=== PATIENT | male | born 1965 | race Two or more races ===

== ENCOUNTER 2021-09-28 15:19 | Emergency (ER) | payer BC ==
[~2021-09-28] VITALS: Ht 177.8 cm; Wt 169.0 kg
--- NOTE | 2021-09-28 15:57 | PHYS DOC ---
Past History Past Surgical History: No Surgical History Alcohol Use: None General Adult EDM: Chief Complaint: CHEST PAIN HPI: HPI: 55-year-old male presents with dizziness, near syncope, chest discomfort. Patient was standing next to a cubicle in a meeting when he felt a sensation of vibration all over his body. He also became dizzy and had double vision. The patient thought he was going to pass out. He was cleaning to the cubicle wall and that is why he did not fall over. This lasted for about 20 seconds. After that, the patient had a central chest discomfort which he describes as a mild pressure. He went back to his desk he continued to feel "like I was vibrating". He decided to go home. He called his PCP from his vehicle and they recommended he come to the emergency room. The patient's vision is normal at this time. He states still feeling a mild vibratory sensation in his body. His chest discomfort is very mild at this time. He denies shortness of breath or diaphoresis. He has a history of elevated blood pressure and diabetes. No changes to his medications recently. He has been taking everything as prescribe d. He was feeling well up until this event. Review of Systems: Review of Systems: Constitutional: Denies fever or chills Eyes: Denies change in visual acuity HENT: Denies nasal congestion or sore throat Respiratory: Denies cough or shortness of breath Cardiovascular: Chest pain GI: Denies abdominal pain, nausea, vomiting, bloody stools or diarrhea : Denies dysuria Musculoskeletal: Denies back pain or joint pain Integument: Denies rash Neurologic: Dizzy, near syncope. Denies headache, focal weakness or sensory changes Endocrine: Denies polyuria or polydipsia Lymphatic: Denies swollen glands Psychiatric: Denies depression or anxiety Current Medications: Current Meds: Current Medications Medications (Trade) Dose Ordered Sig/Jasmin Start Time Stop Time Status Last Admin Dose Admin Sodium Chloride 1,000 ml @ 1,000 mls/hr 1X ONCE 09/28/21 16:00 09/28/21 16:59 UNV Allergies: Allergies: Allergies Coded Allergies Type Severity Reaction Last Updated Verified No Known Drug Allergies 09/28/21 No Physical Exam: PE: Constitutional: Well developed, well nourished, morbidly obese, no acute distress, non-toxic appearance. [] HENT: Normocephalic, atraumatic, bilateral external ears normal, oropharynx moist, no oral exudates, nose normal. [] Eyes: PERRLA, EOMI, conjunctiva normal, no discharge. [] Neck: Normal range of motion, no tenderness, supple, no stridor. [] Cardiovascular: Heart rate regular rhythm, no murmur [] Lungs & Thorax: Bilateral breath sounds clear to auscultation [] Abdomen: Bowel sounds normal, soft, no tenderness, no masses, no pulsatile masses. [] Skin: Warm, dry, no erythema, no rash. [] Back: No tenderness, no CVA tenderness. [] Extremities: No tenderness, no cyanosis, no clubbing, ROM intact, no edema. [] Neurologic: Alert and oriented X 3, normal motor function, normal sensory function, no focal deficits noted. [] Psychologic: Affect normal, judgement normal, mood concerned. [] Current Patient Data: Vital Signs: Vital Signs Date Time Temp Pulse Resp B/P (MAP) Pulse Ox O2 Delivery O2 Flow Rate FiO2 09/28/21 15:24 98.7 110 20 177/87 (117) 97 Room Air EKG: EKG: Sinus rhythm, rate 111, normal axis, no ST elevation or depression. [] Radiology/Procedures: Radiology/Procedures: [] Impressions: Exam Date: 09/28/2021 3:[address] HEAD/BRAIN WO Indication: Reason: double vision, near syncope / Spl. Instructions: / History: . TECHNIQUE: Head CT was performed without intravenous contrast. One or more of the following dose reduction techniques were utilized: *Automated exposure control (AEC) *Adjustment of mA and/or kV according to patient size *Use of iterative reconstruction technique *CT scan done according to ALARA, or ALARA/IMAGE GENTLY FINDINGS: The ventricles and sulci are prominent consistent with cerebral volume loss. Patchy ill-defined low attenuation areas in the subcortical and periventricular white matter bilaterally are consistent with microvascular disease. There is no evidence of acute intracranial hemorrhage, extra-axial collection, mass effect, midline shift, or acute territorial infarct. No lesion of the skull base or the calvarium is seen. The visualized paranasal sinuses, mastoid air cells and orbits are normal in appearance. IMPRESSION: No evidence for acute intracranial abnormality. Volume loss and microvascular disease. Electronically signed by: Jean Pendleton MD (09/28/2021 4:17 PM) [facility] DICTATED AND SIGNED BY: JEAN PENDLETON MD DATE: 09/28/21 1616 CC: JOSEPH RODRIGUEZ DO; REI SMITH PA-C ~ Exam Date: 09/28/2021 3:51 PM XR CHEST 1V Indication: Reason: CP / Spl. Instructions: / History: . FINDINGS/ IMPRESSION: The cardiac silhouette and pulmonary vasculature are within normal limits. There is no focal consolidation, pleural effusion or pneumothorax. The visualized osseous structures are intact. Electronically signed by: Jean Pendleton MD (09/28/2021 3:59 PM) [facility] DICTATED AND SIGNED BY: JEAN PENDLETON MD DATE: 09/28/21 1558 CC: JOSEPH RODRIGUEZ DO; REI SMITH PA-C ~ Heart Score: C/O Chest Pain: Yes HEART Score for Chest Pain: HEART Score for Chest Pain Response (Comments) Value History Slighlty/Non-Suspicious 0 ECG Normal 0 Age >45 - < 65 1 Risk Factors 1 or 2 Risk Factors 1 Troponin < Normal Limit 0 Total 2 Risk Factors: Risk Factors: DM, Current or recent (<one month) smoker, HTN, HLP, family history of CAD, obesity. Risk Scores: Score 0 - 3: 2.5% MACE over next 6 weeks - Discharge Home Score 4 - 6: 20.3% MACE over next 6 weeks - Admit for Clinical Observation Score 7 - 10: 72.7% MACE over next 6 weeks - Early Invasive Strategies Course & Med Decision Making: Course & Med Decision Making Pertinent Labs and Imaging studies reviewed. (See chart for details) The patient's labs are significant for an elevated glucose of 315. He has a normal anion gap. I ordered a liter of normal saline. Troponin is normal. EKG is remarkable for sinus tachycardia. Heart rate has improved. Chest x-ray is negative for acute findings. His head CT shows some volume loss and microvascular disease. His elevated glucose for his microvascular disease could have contributed to the symptoms. The patient is feeling better at this time. I have advised him about his blood sugar and that he should follow this up with his primary physician. He states verbal understanding. He is stable for discharge at this time. [] Krishan Disclaimer: Krishan Disclaimer: This electronic medical record was generated, in whole or in part, using a voice recognition dictation system. Departure Departure: Impression: Primary Impression: Chest pain Qualified Codes: R07.9 - Chest pain, unspecified Additional Impression: Hyperglycemia due to type 2 diabetes mellitus Qualified Codes: E11.65 - Type 2 diabetes mellitus with hyperglycemia Disposition: 01 HOME / SELF CARE / HOMELESS Condition: STABLE Referrals: REI SMITH PA-C (PCP) Patient Instructions: Chest Pain (Nonspecific), [id number], Hyperglycemia, [id number] JOSEPH RODRIGUEZ DO Sep 28, 2021 15:57
[2021-09-28] MEDS ORDERED: IV NORMAL SALINE 1,000ML 1,000 ML IV ONE (16:00)
[2021-09-28 16:01] LABS: BASO # 0.1 x10^3/uL (0.0-0.2); BASO % 1 % (0-3); EOS # 0.1 x10^3/uL (0.0-0.7); EOS % 1 % (0-3); HEMATOCRIT 46.2 % (39.0-53.0); HEMOGLOBIN 15.2 g/dL (13.0-17.5); LYMPH # 1.8 x10^3/uL (1.0-4.8); LYMPH % 18 % (24-48); MEAN CORPUSCULAR HEMOGLOBIN 27 pg (25-35); MEAN CORPUSCULAR HGB CONC 33 g/dL (31-37); MEAN CORPUSCULAR VOLUME 83 fL (79-100); MONO # 0.8 x10^3/uL (0.0-1.1); MONO % 8 % (0-9); NEUT # 7.2 x10^3uL (1.8-7.7); NEUT % 72 % (31-73); PLATELET COUNT 278 x10^3/uL (140-400); RED BLOOD COUNT 5.57 x10^6/uL (4.30-5.70); RED CELL DISTRIBUTION WIDTH 14.5 % (11.5-14.5)
[2021-09-28 16:02] LABS: CALCIUM 9.8 mg/dL (8.5-10.1); CREATININE 1.2 mg/dL (0.7-1.3); GFR 62.6; POTASSIUM 4.7 mmol/L (3.5-5.1)
--- NOTE | 2021-09-28 16:02 | RAD ---
Exam Date: 09/28/2021 3:51 PM XR CHEST 1V Indication: Reason: CP / Spl. Instructions: / History: . FINDINGS/ IMPRESSION: The cardiac silhouette and pulmonary vasculature are within normal limits. There is no focal consolidation, pleural effusion or pneumothorax. The visualized osseous structures are intact. Electronically signed by: Myke Pendleton MD (09/28/2021 3:59 PM) [facility]
[2021-09-28 16:08] LABS: ALBUMIN 3.9 g/dL (3.4-5.0); TOTAL BILIRUBIN 0.5 mg/dL (0.2-1.0); TOTAL PROTEIN 7.8 g/dL (6.4-8.2)
--- NOTE | 2021-09-28 16:19 | RAD ---
Exam Date: 09/28/2021 3:[address] HEAD/BRAIN WO Indication: Reason: double vision, near syncope / Spl. Instructions: / History: . TECHNIQUE: Head CT was performed without intravenous contrast. One or more of the following dose re duction techniques were utilized: *Automated exposure control (AEC) *Adjustment of mA and/or kV according to patient size *Use of iterative reconstruction technique *CT scan done according to ALARA, or ALARA/IMAGE GENTLY FINDINGS: The ventricles and sulci are prominent consistent with cerebral volume loss. Patchy ill-defined low attenuation areas in the subcortical and periventricular white matter bilaterally are consistent with microvascular disease. There is no evidence of acute intracranial hemorrhage, extra-axial collecti on, mass effect, midline shift, or acute territorial infarct. No lesion of the skull base or the calv arium is seen. The visualized paranasal sinuses, mastoid air cells and orbits are normal in appearanc e. IMPRESSION: No evidence for acute intracranial abnormality. Volume loss and microvascular disease. Electronically signed by: Myke Pendleton MD (09/28/2021 4:17 PM) [facility]
[2021-09-28 16:26] VITALS: BP 151/82
--- NOTE | 2021-09-28 16:32 | EKG ---
[address] [address] Test Date: 2021-09-28 Test Time: 15:28:38 Pat Name: JOON ESTEBAN Department: Room: Gender: M [employer] Grade [employer]: ISELA : 1965 Requested By: JOSEPH RODRIGUEZ Order Number: [id number] Reading MD: Rupesh Sabillon MD Measurements Intervals [place] Rate: 111 P: 46 SC: 182 QRS: 19 QRSD: 90 T: 32 QT: 330 QTc: 452 Interpretive Statements SINUS TACHYCARDIA Electronically Signed On 10-01-2021 17:57:52 CDT by Rupesh Sabillon MD
== END 2021-09-28 17:28 | disposition home or self-care (01) ==
LOC: ER 15:19
DX: R07.89 Other chest pain (principal); E11.65 Type 2 diabetes mellitus with hyperglycemia
CPT/HCPCS: 36415; 70450; 71045; 80053; 84484; 85025; 93005; 96360; 99285; J7030